=== PATIENT | female | born 1970 | race Caucasian/White ===

== ENCOUNTER 2017-05-07 20:39 | Emergency (ER) | payer BC ==
[~2017-05-07] VITALS: Ht 170.2 cm; Wt 100.5 kg
[2017-05-07] MEDS ORDERED: PERCOCET 5/31 TABLET PO (22:33)
[2017-05-07 22:58] VITALS: BP 152/88
== END 2017-05-07 23:06 | disposition home or self-care (01) ==
LOC: EME 20:39
DX: S52.124A Nondisplaced fracture of head of right radius, initial encounter for closed fracture (principal); S80.212A Abrasion, left knee, initial encounter; Z23 Encounter for immunization; W01.198A Fall on same level from slipping, tripping and stumbling with subsequent striking against other object, initial encounter; Z88.0 Allergy status to penicillin
CPT/HCPCS: 73080; 73090; 99281; 99283